=== PATIENT | male | born 1970 | race Caucasian/White ===

== ENCOUNTER 2018-09-11 10:06 | Outpatient (CLI) | payer BC ==
--- NOTE | 2018-09-11 10:44 | RAD ---
F2 views chest: 09/11/2018 COMPARISON: 06/16/2013 HISTORY: Cough and congestion, drainage with shortness of breath FINDINGS: Increased linear interstitial density is noted bilaterally, stable. Mild pulmonary hyperinf lation noted, stable and suggesting air trapping. Stable prominence of the cardiac silhouette. No pne umothorax, pleural fluid, focal consolidation, or alveolar edema. IMPRESSION: Stable prior to the chest. No acute findings.
== END 2018-09-11 10:07 | disposition home or self-care (01) ==
LOC: SCSRAD 10:06
PROVIDERS: ATTEND Family Medicine
DX: R05 Cough (principal)
CPT/HCPCS: 71046

== ENCOUNTER 2018-09-18 08:30 | Outpatient (CLI) | payer BC ==
--- NOTE | 2018-09-18 12:21 | CT ---
SINUS CT WITHOUT CONTRAST: HISTORY: Recurrent sinus infection. COMPARISON: None. FINDINGS: Visualized brain parenchyma and orbits are unremarkable. The visualized aerodigestive tract is grossly unremarkable. Adequate aeration of the frontal sinuses, ethmoid air cells and sphenoid sinuses. There is mild mucos al thickening involving the left maxillary sinus. A small amount of secretions are noted in the depen dent portion. There is adequate aeration of the right maxillary sinus. Coronal images demonstrate patent bilateral ostiomeatal complexes. Nasal septum is intact. With regard to the osseous margins of the sinuses, there are no erosive or destructive changes. IMPRESSION: Mild mucosal disease involving the left maxillary sinus. Transcribed Date/Time: 09/18/2018 12:23 PM
== END 2018-09-18 08:31 | disposition home or self-care (01) ==
LOC: SCSCT 08:30
PROVIDERS: ATTEND Otolaryngology Plastic Surgery within the Head & Neck
DX: J01.91 Acute recurrent sinusitis, unspecified (principal); J32.0 Chronic maxillary sinusitis

== ENCOUNTER 2018-10-06 03:12 | Emergency (ER) | payer BC ==
[2018-10-06] MEDS ORDERED: Dicyclomine 20 MG TAB ONE (03:47)
[2018-10-06] MEDS ORDERED: Ondansetron PF 4 MG/2 ML Vial ONE (03:47)
[2018-10-06 03:58] LABS: #Basophils 0.1 thou/uL (0.0-0.2); #Eosinphils 0.1 thou/uL (0.0-0.7); #Lymphocytes 1.3 thou/uL (1.20-3.40); #Neutrophils 13.7 thou/uL (1.40-6.50); %Basophils 0.5 % (0.0-1.0); %Eosinophils 0.8 % (0.0-10.0); %Lymphocytes 7.8 % (21.0-51.0); %Monocytes 5.9 % (0.0-10.0); Mean Corpuscular HGB CONC 34.6 g/dL (32.0-36.0); Mean Corpuscular Hemoglobin 30.2 pg (27.0-31.0); Mean Corpuscular Volume 87.1 fL (78.0-98.0); Mean Platelet Volume 6.4 fL (7.4-10.4); Platelet Count 213 thou/uL (130-400); RBC Distribution Width 12.6 % (11.5-14.5); Red Blood Cell (RBC) Count 4.63 mill/uL (4.70-6.10); White Blood Cell (WBC) Count 16.1 thou/uL (4.8-10.8)
[2018-10-06 04:17] LABS: ALT (SGPT) 39 U/L (8-55); AST (SGOT) 25 U/L (5-34); Albumin 4.6 g/dL (3.5-5.0); Alkaline Phosphatase 84 U/L (40-150); Anion Gap 16 mmol/L (10-20); BUN (Urea Nitrogen) 20 mg/dL (8.9-20.6); Bilirubin, Total 1.2 mg/dL (0.2-1.2); Calc. Creatinine Clearance 0 mL/min (70-130); Calcium 9.5 mg/dL (7.8-10.44); Carbon Dioxide 20 mmol/L (22-29); Chloride 109 mmol/L (98-107); Estimated GFR-MDRD 55; Globulin 2.5 g/dL (2.4-3.5); Glucose 138 mg/dL (70-105); Lipase 17 U/L (8-78); Magnesium 1.9 mg/dL (1.6-2.6); Protein, Total 7.1 g/dL (6.0-8.3); Sodium 141 mmol/L (136-145)
== END 2018-10-06 05:21 | disposition home or self-care (01) ==
LOC: SCSER 03:12
DX: R11.2 Nausea with vomiting, unspecified (principal); R19.7 Diarrhea, unspecified; G47.30 Sleep apnea, unspecified; J45.909 Unspecified asthma, uncomplicated; I48.91 Unspecified atrial fibrillation; I10 Essential (primary) hypertension; Z79.899 Other long term (current) drug therapy; Z79.51 Long term (current) use of inhaled steroids
CPT/HCPCS: 80053; 83690; 83735; 85025; 96361; 96374; J2405

== ENCOUNTER 2018-10-29 20:30 | Outpatient (CLI) | payer BC | END 2018-10-29 20:31 | disposition home or self-care (01) | LOC: SLEEPLAB 20:30 | PROVIDERS: ATTEND Allergy & Immunology | DX: G47.33 Obstructive sleep apnea (adult) (pediatric) (principal) | CPT/HCPCS: 95811 ==

== ENCOUNTER 2019-04-04 13:26 | Outpatient (CLI) | payer BC ==
[~2019-04-04 13:26] MED LIST: Iopamidol 370 76% 100 ML VIAL ONE
--- NOTE | 2019-04-04 16:13 | CT ---
CT ABDOMEN AND PELVIS WITH AND WITHOUT IV CONTRAST: 04/04/19 HISTORY: Microscopic hematuria. FINDINGS: The lung bases are unremarkable. The liver, pancreas and adrenal glands are normal. The spleen is enl arged measuring 16.5 cm in length. No calcified gallstones are seen. No calculi are noted in the kidneys, ureters, or the urinary bladder. No hydroureteronephrosis is not ed on either side. Postcontrast images demonstrate a 14 mm cyst arising from the inferior pole of the left kidney. No enhancing renal mass is seen on either side. There is normal contrast excretion int o the pelvicalyceal systems, ureters and the urinary bladder. No free air, free fluid, or lymphadenopathy is seen in the abdomen or pelvis. The small bowel loops are not abnormally dilated. A normal appearing appendix is seen. Degenerative changes in the spine. A small sclerotic focus in the right acetabular roof is likely a b one island. IMPRESSION: 1. No CT evidence of urinary tract calculi/obstruction. 2. Left inferior pole renal cyst. 3. Splenomegaly. POS: [facility]
== END 2019-04-04 13:27 | disposition home or self-care (01) ==
LOC: SCSCT 13:26
PROVIDERS: ATTEND Urology
DX: R31.29 Other microscopic hematuria (principal); N28.1 Cyst of kidney, acquired; R16.1 Splenomegaly, not elsewhere classified
CPT/HCPCS: 74178; Q9967

== ENCOUNTER 2019-08-20 07:45 | Outpatient (CLI) | payer BC ==
[2019-08-20 12:05] LABS: Hemoglobin 13.7 g/dL (14.0-18.0); Mean Corpuscular HGB CONC 35.5 g/dL (32.0-36.0); Mean Corpuscular Hemoglobin 31.6 pg (27.0-31.0); Mean Platelet Volume 7.5 fL (7.4-10.4); Platelet Count 180 thou/uL (130-400); RBC Distribution Width 12.2 % (11.5-14.5); Red Blood Cell (RBC) Count 4.34 mill/uL (4.70-6.10); White Blood Cell (WBC) Count 7.4 thou/uL (4.8-10.8)
[2019-08-20 12:10] LABS: INR-International Normal Ratio 1.6; PTT 36.4 SEC (22.9-36.1); Prothrombin Time 18.9 SEC (12.0-14.7)
[2019-08-20 12:30] LABS: Anion Gap 13 mmol/L (10-20); BUN (Urea Nitrogen) 12 mg/dL (8.9-20.6); Calc. Creatinine Clearance 0 mL/min (70-130); Calcium 9.3 mg/dL (7.8-10.44); Carbon Dioxide 26 mmol/L (22-29); Chloride 106 mmol/L (98-107); Estimated GFR-MDRD Greater than 90; Glucose 97 mg/dL (70-105); Potassium 3.9 mmol/L (3.5-5.1); Sodium 141 mmol/L (136-145)
== END 2019-08-20 07:46 | disposition home or self-care (01) ==
LOC: LABBT 07:45
PROVIDERS: ATTEND Specialist
DX: Z01.818 Encounter for other preprocedural examination (principal); I48.91 Unspecified atrial fibrillation
CPT/HCPCS: 80048; 85027; 85610; 85730; 93005; 93010

== ENCOUNTER 2019-08-22 08:44 | Observation (INO) | payer BC ==
[2019-08-22 09:39] LABS: INR-International Normal Ratio 1.6; PTT 35.8 SEC (22.9-36.1); Prothrombin Time 18.8 SEC (12.0-14.7)
[2019-08-22] MEDS ORDERED: Heparin 10,000 UNITS/1 ML VIAL ONE ×2 (09:51→11:24)
[2019-08-22] MEDS ORDERED: Heparin 25,000 units/D5W 0 ML ONE (09:51)
[2019-08-22] MEDS ORDERED: Lidocaine 1% (PF) 30 ML VIAL ONE (09:51)
[2019-08-22] MEDS ORDERED: Isoproterenol 0.2 MG/1 ML AMP ONE (09:53)
[2019-08-22] MEDS ORDERED: SUGAMMADEX SODIUM 200 MG/2 ML VIAL ONE (10:11)
[2019-08-22] MEDS ORDERED: Fentanyl 100 MCG/2 ML VIAL ONE ×2 (10:11→10:51)
[2019-08-22] MEDS ORDERED: PHENYLEPHRINE-NS 100 MCG/ML 10 ML SYRINGE ONE (10:26)
[2019-08-22] MEDS ORDERED: Rocuronium Bromide 10 MG/ML (10ML VIAL) ONE (10:26)
[2019-08-22] MEDS ORDERED: Succinylcholine Chloride 20 MG/ML 10 ml SYRINGE FS ONE (10:26)
[2019-08-22] MEDS ORDERED: Lidocaine 1% PF 5 ML VIAL ONE (10:26)
[2019-08-22] MEDS ORDERED: PROPOFOL 200 MG/20 ML VIAL ONE (10:26)
[2019-08-22] MEDS ORDERED: Rocuronium Bromide 50 MG/5 ML VIAL ONE (11:41)
[2019-08-22] MEDS ORDERED: PROVENTIL INHALER 6.7 G (200 INHALATIONS) INH PRN ×2 (14:53→19:46)
[2019-08-22] MEDS ORDERED: Rivaroxaban 10 MG TAB PO SCH (18:00)
[2019-08-22] MEDS ORDERED: Morphine 2 MG/ML SYRINGE SLOW IVP SCH (18:15)
[2019-08-22] MEDS ORDERED: Sodium Chloride 0.9% 1,000 ML IV SCH (18:30)
[2019-08-22] MEDS ORDERED: Acetaminophen 325 MG TAB PO PRN (18:30)
--- NOTE | 2019-08-22 18:37 | ULT ---
Focused vascular ultrasound of the neck: 08/22/2019 COMPARISON: None HISTORY: Swelling, prior ablation procedure TECHNIQUE: Focused ultrasound of the neck is provided on the right. Provided imaging includes graysca le assessment as well as assessment of the mid and proximal aspect of the right common carotid artery with color flow and Doppler interrogation. FINDINGS: The provided imaging demonstrates patency with normal arterial waveforms within the interro gated portion of the right common carotid artery. No drainable fluid collection is seen. No patent pseudoaneurysm is noted. If further clinical concern warrants additional imaging, CT angiogram of the neck suggested. IMPRESSION: Grossly unremarkable focused ultrasound of the neck on the right. Please see above discus juliette regarding potential follow-up imaging.
[2019-08-22] MEDS: Sucralfate 1 GM TAB PO SCH ×2 (18:52→20:27)
[2019-08-22] MEDS: Dronedarone HCl 400 MG TAB PO SCH (20:26)
[2019-08-22] MEDS: CeleCOXIB 100 MG CAP PO SCH (20:36)
[2019-08-22] MEDS: cycloSPORINE 0.05% Ophthalmic Droperette EA EYE SCH (20:37)
[2019-08-22] MEDS ORDERED: CeleCOXIB 100 MG CAP PO SCH (21:00)
[2019-08-22] MEDS ORDERED: Montelukast Sodium 10 mg Tablet PO SCH ×2 (21:00)
--- NOTE | 2019-08-23 00:29 | HP ---
CHIEF COMPLAINT: Atrial fibrillation. HISTORY OF PRESENT ILLNESS: This patient is a 49-year-old male with a history of atrial fibrillation that recurred following a PVI in 2016. The patient has been symptomatic with some palpitations, dyspnea and fatigue and had evidence of some possible volume overload with weight gain and peripheral edema. Ultimately, followed with EP and returned today for atrial fibrillation ablation. Subsequent to returning to the floor, the patient was sitting upright and developed some pain and swelling in his right neck area where he had a puncture site for the procedure. He has had some pressure applied to that area and it is feeling somewhat better. He is also reporting a burning sensation in both eyes. He says he had a stye about a week ago in the left eye, took some medication for that, but now his eyes are scratchy and burning rather. Otherwise, he is doing okay. REVIEW OF SYSTEMS: Notable for some lower extremity peripheral edema. Other than that all systems reviewed were negative. PAST MEDICAL HISTORY: Notable for the above-mentioned atrial fibrillation. He has hypertension and his blood pressure at home and it has been running 150/90 range. He has a history of gastroesophageal reflux and history of retinal detachment. PAST SURGICAL HISTORY: PVI for atrial fibrillation 2016. FAMILY HISTORY: Noncontributory. SOCIAL HISTORY: Nonsmoker, nondrinker, nondrug user. He is . He is full code and his would be his surrogate decision maker should that become necessary. PHYSICAL EXAMINATION: VITAL SIGNS: Temperature 98.1, pulse 97, BP 145/77, O2 saturation 92% on room air. GENERAL APPEARANCE: Age-appropriate male in no distress. He is awake and alert. He is morbidly obese. GENERAL APPEARANCE: Age-appropriate. HEENT: MANDY. He does have injected vasculature of the conjunctiva bilaterally. There are no OP lesions. NECK: There is no significant evidence of mass or bruising presently. Ultrasound being obtained revealing no significant findings. HEART: Regular rate and rhythm without murmurs, gallops, or rubs. LUNGS: Clear to auscultation bilaterally. No wheezes or rales. ABDOMEN: Obese, soft, nontender, and nondistended. Positive bowel sounds. No masses. No organomegaly. EXTREMITIES: No cyanosis, clubbing, or edema. There is 1+ pitting edema pretibially bilaterally. Peripheral pulses are present, but slightly diminished likely due to the edema. PSYCHIATRIC: Normal affect and behavior. NEUROLOGIC: He is cognitively intact. Cranial nerves appear to be functioning normally. He has spontaneous movement of extremities. LABORATORY DATA: INR is 1.6, PTT 35.8. IMPRESSION AND PLAN: 1. Atrial fibrillation status post ablation per EP. 2. Right neck hematoma, appears to be improved with compression. Ultrasound does not appear to show anything abnormal of the vasculature. Dr. Logan has been notified. We will defer to them regarding decisions about anticoagulation this evening. 3. Hypertension. Resume his home medications. 4. Conjunctivitis. We will order some Restasis. 5. History of reflux. Continue with proton pump inhibitor and Carafate, which has already been ordered. Job ID: [id number] [facility]
[2019-08-23 05:08] LABS: #Lymphocytes 1.5 thou/uL (1.20-3.40); #Monocytes 0.6 thou/uL (0.11-0.59); #Neutrophils 6.4 thou/uL (1.40-6.50); %Eosinophils 0.4 % (0.0-10.0); %Lymphocytes 17.3 % (21.0-51.0); %Monocytes 7.3 % (0.0-10.0); Hemoglobin 11.5 g/dL (14.0-18.0); Mean Corpuscular HGB CONC 35.2 g/dL (32.0-36.0); Mean Corpuscular Hemoglobin 31.7 pg (27.0-31.0); Mean Platelet Volume 7.4 fL (7.4-10.4); Platelet Count 159 thou/uL (130-400); RBC Distribution Width 12.2 % (11.5-14.5); Red Blood Cell (RBC) Count 3.61 mill/uL (4.70-6.10); White Blood Cell (WBC) Count 8.5 thou/uL (4.8-10.8)
[2019-08-23] MEDS: Sucralfate 1 GM TAB PO SCH ×2 (07:56→11:04)
[2019-08-23] MEDS: Dronedarone HCl 400 MG TAB PO SCH (07:58)
[2019-08-23] MEDS: CeleCOXIB 100 MG CAP PO SCH (07:58)
[2019-08-23] MEDS ORDERED: Potassium Chloride 10 MEQ TAB PO SCH ×2 (08:00→09:00)
[2019-08-23] MEDS: cycloSPORINE 0.05% Ophthalmic Droperette EA EYE SCH (08:00)
[2019-08-23] MEDS ORDERED: Furosemide 20 MG TAB PO SCH ×2 (09:00)
[2019-08-23] MEDS ORDERED: Folic Acid 1 MG TAB PO SCH ×2 (09:00)
[2019-08-23] MEDS ORDERED: Fluticasone Propionate Nasal Spray 16 gm Bottle NASAL SCH ×2 (09:00)
[2019-08-23] MEDS ORDERED: Losartan 25 MG TAB PO SCH ×2 (09:00)
--- NOTE | 2019-08-23 10:12 | PDOC.EP ---
- Subjective Date: 08/23/19 Time: 10:10 Interval History: follow up for atrial fibrillation s/p LA ablation. c/o right neck pain from post op hematoma. otherwise no complaints and feels well. - Review of Systems Constitutional: denies: chills, fever, malaise, sweats, weakness, other Respiratory: denies: cough, dry, hemoptysis, pleuritic pain, shortness of breath , SOB with excertion, sputum, wheezing, other Cardiology: denies: chest pain, edema, heart racing, light headedness, paroxysmal noc. dyspnea, palpitations Gastrointestinal: denies: abdominal pain, constipation, nausea, vomitting Musculoskeletal: reports: other (neck pain). denies: unstable gait, falls, leg pain - Objective Allergies/Adverse Reactions: Allergies Allergy/AdvReac Type Severity Reaction Status Date / Time latex Allergy Rash Verified 08/20/19 10:43 Penicillins Allergy Verified 08/20/19 10:43 Sulfa (Sulfonamide Allergy Rash Verified 08/20/19 10:43 Antibiotics) Current Medications Acetaminophen (Tylenol) 650 mg PO Q4H PRN PRN Reason: Headache/Fever/Mild Pain (1-3) Albuterol Sulfate (Proventil Hfa) 2 puff INH Q4H PRN PRN Reason: ASTHMA Celecoxib (Celebrex) 200 mg PO BID [facility] Last Admin: 08/23/19 07:58 Dose: 200 mg Cholecalciferol (Vitamin D3) 2,000 units PO DAILY [facility] Last Admin: 08/23/19 07:57 Dose: 2,000 units Cyclosporine (Restasis) 0 ml EA EYE BID [facility] Last Admin: 08/23/19 08:00 Dose: 1 ml Dronedarone (Multaq) 400 mg PO BID [facility] Last Admin: 08/23/19 07:58 Dose: 400 mg Fluticasone Propionate (Flonase Nasal Danube) 0 gm NASAL DAILY [facility] Last Admin: 08/23/19 07:58 Dose: 1 applic Folic Acid (Folvite) 1 mg PO DAILY [facility] Last Admin: 08/23/19 07:57 Dose: 1 mg Furosemide (Lasix) 20 mg PO DAILY [facility] Last Admin: 08/23/19 07:57 Dose: 20 mg Sodium Chloride (Normal Saline 0.9%) 1,000 mls @ 50 mls/hr IV .Q20H [facility] Last Admin: 03/13/20 20:24 Dose: 1,000 mls Losartan Potassium (Cozaar) 50 mg PO DAILY [facility] Last Admin: 08/23/19 07:58 Dose: 50 mg Metoprolol Succinate (Toprol Xl) 50 mg PO DAILY [facility] Last Admin: 08/23/19 07:58 Dose: 50 mg Montelukast Sodium (Singulair) 10 mg PO HS [facility] Last Admin: 08/22/19 20:37 Dose: 10 mg Pantoprazole Sodium (Protonix) 40 mg PO DAILY [facility] Stop: 09/21/19 09:01 Last Admin: 08/23/19 07:58 Dose: 40 mg Potassium Chloride (Klor-Con 10) 10 meq PO QAM-WM [facility] Last Admin: 08/23/19 07:57 Dose: 10 meq Rivaroxaban (Xarelto) 20 mg PO 1800 [facility] Last Admin: 08/22/19 20:36 Dose: 20 mg Sodium Chloride (Flush - Normal Saline) 10 ml IVF PRN PRN PRN Reason: Saline Flush Sucralfate (Carafate) 1 gm PO ACHS [facility] Stop: 09/05/19 17:01 Last Admin: 08/23/19 07:56 Dose: 1 gm Vital Signs & Weight: Vital Signs Temp Pulse Resp BP Pulse Ox 08/23/19 07:48 98.3 F 79 18 145/78 H 96 08/23/19 04:35 98.4 F 81 14 138/82 100 08/22/19 22:30 90 19 146/86 H 98 Weight 13.228 oz I/O: I/O 08/22/19 08/23/19 08/24/19 06:59 06:59 06:59 Intake Total 950 Output Total 350 Balance 600 - Quality Measures Condition: Atrial Fibrillation/Flutter (hx or current) CV meds: Xarelto: Yes - Physical Exam General: alert & oriented x3, appears well, no apparent distress, speech clear, affect appropriate HEENT: mucus membranes moist, normocephaly Neck: supple neck, midline trachea, no JVD/HJR, masses (right sided hematoma ~ 3cm. does not exceed outlined area from the night prior.) Cardiology: regular rate and rhythm, PMI nondisplaced Lungs: clear to auscultation, normal breath sounds, no wheeze, rales, rhonchi Neurology: cranial nerve 2-12 intact, sensory function intact, no lateralizing findings Extremities: dry, strong pulses, warm Skin: groin sites stable - Labs Result Diagrams: 08/23/19 04:52 - EKG Interpretation EKG Method: Telemetry EKG shows: Sinus rhythm - Assessment/Plan Assessment/Plan: 1. Persistent AFib -41 min ablation 2. Chronic OAC with eliquis Groin access sites stable without hematoma. Right neck site has small hematoma, US ruled out pseudo and bleeding has not expanded since prior to ultrasound, even with Xarelto given last night. Continue home meds and add post ablation meds of protonix and carafate. patient has lasix and KCl at home but was provided with written rx if additional is needed. Instructed to take Lasix 20mg and KCl 10mEq daily x 3 days then PRN fluid retention symptoms. rhythm stable post ablation. No need for Multaq at this time but if early recurrence is seen then we will have patient resume Multaq & stop diltiazem. med per med rec. OK for DC by EP
--- NOTE | 2019-08-23 10:37 | OP ---
DATE OF PROCEDURE: 08/22/2019 PROCEDURE PERFORMED: Ablation for atrial fibrillation. PREOPERATIVE DIAGNOSES: Persistent atrial fibrillation and atypical atrial flutter. DESCRIPTION OF PROCEDURE: The patient came to the EP lab in postabsorptive state. Informed consent was obtained. A time-out was called. The patient was sedated by member of the anesthesia staff. Once the patient was adequately sedated, the right and left femoral regions were prepped and draped in usual sterile fashion. Using a modified Seldinger technique and with ultrasound-guided access, access was obtained x2 in the right femoral vein, x1 in the left femoral vein, and x1 in the right internal jugular vein. A 20 pole duo-Deca catheter was advanced from the right internal jugular vein with the distal 10 poles placed into the coronary sinus for left atrial pacing and recording. The proximal 10 poles placed along the nick terminalis area. The intracardiac echo catheter was advanced from the left femoral vein and was placed into the right atrium for intraprocedural guidance and monitoring. Heparin bolus was given to achieve an ACT greater than 350 seconds. Transseptal puncture x2 was obtained under ultrasound guidance. A 20 mm 10-pole circular mapping catheter was placed into the left atrium as was a Carto STSF F catheter. A 3D electroanatomical map was made of the atypical atrial flutter. The flutter circuit appeared to be coming from the anterior left atrium along the base of the appendage. This was ablated successfully and initially with prolongation of the flutter cycle length and then ultimately termination. Following this, radiofrequency was applied around the pulmonary veins to re-isolate the pulmonary veins. It appeared that the left superior pulmonary vein, the left inferior pulmonary vein, the right superior pulmonary vein, and the right inferior pulmonary vein all had regained conduction in distant areas of the posterior wall. A total of 41 minutes of radiofrequency was delivered resulting in re-isolation the pulmonary veins as well as ablation of the posterior wall. The posterior wall could not be isolated completely due to esophageal heating. This was monitored with a temperature probe. Following this, the catheter was removed from the left atrium and the circular mapping catheter was placed into the superior vena cava, and the superior vena cava was isolated with radiofrequency. The ablation catheter was also placed along the His bundle and an HV interval was 50 milliseconds. Pacing in the left atrium as well as the left ventricle was also performed. The patient tolerated the procedure well and was discharged from the EP lab in a stable condition. POSTOPERATIVE DIAGNOSES: Atypical atrial flutter and persistent atrial fibrillation. PROCEDURES PERFORMED: Radiofrequency ablation for atypical atrial flutter and for atrial fibrillation, 3D electroanatomical mapping, transseptal puncture, intracardiac echo, isoproterenol, drug delivery. CONCLUSIONS: 1. Successful ablation of atypical atrial flutter. 2. Successful re-isolation of pulmonary veins. 3. No further arrhythmias on infusion of isoproterenol. 4. Successful isolation of the superior vena cava. RECOMMENDATIONS: The patient will be at bed rest and the patient will follow up with Electrophysiology in 6 weeks. Job ID: [id number]
[2019-08-23 11:54] VITALS: BP 138/72; TEMP 98.6
--- NOTE | 2019-08-24 22:35 | DIS ---
DATE OF ADMISSION: 08/22/2019 DATE OF DISCHARGE: 08/23/2019 HISTORY OF PRESENT ILLNESS: Mr. Patel is a 49-year-old male with a medical history of atrial fibrillation that recurred following the PVI in 2016. He has been symptomatic with palpitations, dyspnea, and fatigue, so was seen by outpatient EP and was scheduled for atrial fibrillation ablation. Subsequent returning over to the floor, the patient was found to have some pain and swelling in the right neck area around the puncture site during the procedure. He was thought to have hematoma and was monitored overnight. Ultrasound showed no hematoma and the patient's swelling resolved on the day of discharge, was discharged home and hemodynamically stable with sinus rhythm and followup appointment with Cardiology. He was also on Eliquis overnight and as stated none of his procedure incision sites showed hematoma or worsening hematoma, even though the right groin area showed stable small hematoma that was present immediately after surgery. PHYSICAL EXAMINATION: VITAL SIGNS: Unremarkable. GENERAL: He was alert and oriented x3, no apparent distress. HEENT: Mucous membranes were moist. Normocephalic, atraumatic. NECK: No JVD. No swelling. HEART: Regular rate and rhythm. LUNGS: Clear to auscultation bilaterally. Normal breath sounds. No wheezing, rales, or rhonchi. NEUROLOGIC: Cranial nerves intact. EXTREMITIES: Strong bilateral pedal pulses. SKIN: Right groin site shows a small stable hematoma. Left groin site shows no hematoma. ASSESSMENT AND PLAN: Mr. Patel is a 49-year-old male who presented for elective ablation due to symptomatic atrial fibrillation. 1. Atrial fibrillation, status post ablation. The patient had an ablation, tolerated the procedure well. He remained in sinus rhythm after the procedure. Cardiology reconciled the patient's medication prior to discharge. He was suspected to have a neck hematoma after the procedure, however, was ruled out by ultrasound, most likely soft-tissue inflammation due to the incision. 2. Scheduled for an appointment with Cardiology. 3. He was discharged on Eliquis as per Cardiology. Job ID: [id number]
== END 2019-08-23 12:13 | disposition home or self-care (01) ==
LOC: CCL 08:44 → 2SW 13:40
PROVIDERS: ADMIT Specialist; ATTEND Specialist
PROC: 02583ZZ Destruction of Conduction Mechanism, Percutaneous Approach (ICD-10-PCS; principal; 2019-08-22)
PROC: 4A023FZ Measurement of Cardiac Rhythm, Percutaneous Approach (ICD-10-PCS; 2019-08-22)
PROC: 4A0234Z Measurement of Cardiac Electrical Activity, Percutaneous Approach (ICD-10-PCS; 2019-08-22)
PROC: 02K83ZZ Map Conduction Mechanism, Percutaneous Approach (ICD-10-PCS; 2019-08-22)
DX: I48.19 Other persistent atrial fibrillation (principal); I48.4 Atypical atrial flutter; G47.33 Obstructive sleep apnea (adult) (pediatric); I10 Essential (primary) hypertension; K21.9 Gastro-esophageal reflux disease without esophagitis; G89.29 Other chronic pain; M54.9 Dorsalgia, unspecified; H10.9 Unspecified conjunctivitis; E66.01 Morbid (severe) obesity due to excess calories; Z68.42 Body mass index [BMI] 45.0-49.9, adult; Z79.01 Long term (current) use of anticoagulants; Z79.899 Other long term (current) drug therapy; Z88.0 Allergy status to penicillin; Z88.2 Allergy status to sulfonamides; Z91.040 Latex allergy status; Z99.89 Dependence on other enabling machines and devices; Z98.890 Other specified postprocedural states
CPT/HCPCS: 36415; 76536; 76942; 85025; 85347; 85610; 85730; 93005; 93010; 93613; 93622; 93623; 93656; 93657; 93662; 96374; C1731; C1759; C1769; G0378; J1644; J2001; J2270; J2704; J3010

== ENCOUNTER 2020-10-20 19:16 | Emergency (ER) | payer BC ==
[2020-10-20 20:31] LABS: #Eosinphils 0.1 thou/uL (0.0-0.7); #Lymphocytes 1.7 thou/uL (1.20-3.40); #Monocytes 0.6 thou/uL (0.11-0.59); %Basophils 0.3 % (0.0-1.0); %Eosinophils 1.9 % (0.0-10.0); %Lymphocytes 26.8 % (21.0-51.0); %Monocytes 8.8 % (0.0-10.0); %Neutrophils 62.3 % (42.0-75.0); Hemoglobin 12.6 g/dL (14.0-18.0); Mean Corpuscular HGB CONC 35.7 g/dL (32.0-36.0); Mean Corpuscular Hemoglobin 33.3 pg (27.0-31.0); Mean Corpuscular Volume 93.3 fL (78.0-98.0); Mean Platelet Volume 7.2 fL (7.4-10.4); Platelet Count 184 thou/uL (130-400); RBC Distribution Width 12.3 % (11.5-14.5); Red Blood Cell (RBC) Count 3.77 mill/uL (4.70-6.10); White Blood Cell (WBC) Count 6.4 thou/uL (4.8-10.8)
[2020-10-20 20:47] LABS: Anion Gap 15 mmol/L (10-20); BUN (Urea Nitrogen) 15 mg/dL (8.9-20.6); Calc. Creatinine Clearance 0 mL/min (70-130); Calcium 9.3 mg/dL (7.8-10.44); Carbon Dioxide 24 mmol/L (22-29); Chloride 105 mmol/L (98-107); Glucose 85 mg/dL (70-105); Potassium 4.1 mmol/L (3.5-5.1); Sodium 140 mmol/L (136-145)
== END 2020-10-20 22:18 | disposition home or self-care (01) ==
LOC: ERS 19:16
DX: R61 Generalized hyperhidrosis (principal); R42 Dizziness and giddiness; G47.30 Sleep apnea, unspecified; J45.909 Unspecified asthma, uncomplicated; I48.91 Unspecified atrial fibrillation; I10 Essential (primary) hypertension; Z79.899 Other long term (current) drug therapy; Z79.82 Long term (current) use of aspirin
CPT/HCPCS: 36415; 71046; 80048; 84484; 85025

== ENCOUNTER 2021-10-29 17:10 | Inpatient (IN) | payer BC ==
[2021-10-29] MEDS ORDERED: Ondansetron ODT 8 MG TAB ONE (18:38)
[2021-10-29] MEDS ORDERED: Acyclovir Sodium 1,000 MG in Sodium Chloride 0.9% 250 ML 250 ML IVPB SCH (19:15)
[2021-10-29] MEDS ORDERED: Morphine 4 MG/ML VIAL ONE (20:06)
[2021-10-29] MEDS ORDERED: Morphine 4 MG/ML VIAL SLOW IVP PRN (21:06)
[2021-10-29] MEDS ORDERED: methylPREDNISolone Sod Succ/PF 125 MG/2 ML VIAL ONE (21:11)
[2021-10-29] MEDS ORDERED: Acetaminophen 325 MG TAB PO PRN (21:15)
[2021-10-29] MEDS ORDERED: Ondansetron ODT 4 MG TAB SL PRN (21:15)
[2021-10-29] MEDS ORDERED: Ondansetron PF 4 MG/2 ML Vial IVP PRN (21:15)
[2021-10-29] MEDS ORDERED: Albuterol 200 PUFF (6.7GM INHALER) INH PRN (22:04)
[2021-10-29] MEDS: Sodium Chloride 0.9% 1,000 ML IV SCH (23:30)
[2021-10-29 23:33] VITALS: BMI 49.1
[2021-10-29] MEDS ORDERED: methylPREDNISolone Sod Succ 40 MG VIAL IVP SCH (23:59)
[2021-10-30] MEDS: HYDROcodone/Acetaminophen 5/325 mg Tablet PO PRN ×5 (01:36→21:28)
[2021-10-30] MEDS ORDERED: Acyclovir Sodium 1,000 MG in Sodium Chloride 0.9% 250 ML 250 ML IVPB SCH (04:00)
[2021-10-30] MEDS: methylPREDNISolone Sod Succ 40 MG VIAL IVP SCH ×4 (04:23→20:14)
[2021-10-30] MEDS: Sodium Chloride 0.9% 1,000 ML IV SCH (05:43)
[2021-10-30 06:46] LABS: #Lymphocytes 0.9 thou/uL (1.20-3.40); #Monocytes 0.1 thou/uL (0.11-0.59); #Neutrophils 4.6 thou/uL (1.40-6.50); %Eosinophils 0.4 % (0.0-10.0); %Lymphocytes 16.1 % (21.0-51.0); %Monocytes 1.6 % (0.0-10.0); Hemoglobin 12.8 g/dL (14.0-18.0); Mean Corpuscular HGB CONC 35.8 g/dL (32.0-36.0); Mean Corpuscular Hemoglobin 33.1 pg (27.0-31.0); Mean Corpuscular Volume 92.3 fL (78.0-98.0); Mean Platelet Volume 6.7 fL (7.4-10.4); Platelet Count 189 thou/uL (130-400); RBC Distribution Width 12.4 % (11.5-14.5); Red Blood Cell (RBC) Count 3.88 mill/uL (4.70-6.10); White Blood Cell (WBC) Count 5.6 thou/uL (4.8-10.8)
[2021-10-30 07:12] LABS: ALT (SGPT) 27 U/L (8-55); AST (SGOT) 17 U/L (5-34); Albumin 4.3 g/dL (3.5-5.0); Alkaline Phosphatase 65 U/L (40-110); Anion Gap 13 mmol/L (10-20); BUN (Urea Nitrogen) 14 mg/dL (8.9-20.6); Bilirubin, Total 1.7 mg/dL (0.2-1.2); Calc. Creatinine Clearance 215 mL/min (70-130); Calcium 8.9 mg/dL (7.8-10.44); Carbon Dioxide 27 mmol/L (22-29); Chloride 101 mmol/L (98-107); Globulin 2.7 g/dL (2.4-3.5); Glucose 151 mg/dL (70-105); Potassium 3.7 mmol/L (3.5-5.1); Sodium 137 mmol/L (136-145)
[2021-10-30] MEDS: CeleCOXIB 100 MG CAP PO SCH ×2 (08:55→20:13)
[2021-10-30] MEDS: Rivaroxaban 10 MG TAB PO SCH (08:56)
[2021-10-30] MEDS: Losartan 25 MG TAB PO SCH (08:57)
[2021-10-30] MEDS: Furosemide 20 MG TAB PO SCH (08:57)
[2021-10-30] MEDS: Ondansetron PF 4 MG/2 ML Vial IVP PRN ×3 (12:08→23:21)
[2021-10-30] MEDS: Montelukast Sodium 10 mg Tablet PO SCH (20:14)
[2021-10-30] MEDS: Acyclovir Sodium 750 MG in Sodium Chloride 0.9% 250 ML 250 ML IVPB SCH (20:42)
[2021-10-31] MEDS: HYDROcodone/Acetaminophen 5/325 mg Tablet PO PRN ×2 (01:20→05:46)
[2021-10-31] MEDS: methylPREDNISolone Sod Succ 40 MG VIAL IVP SCH ×4 (04:05→20:21)
[2021-10-31] MEDS: Ondansetron PF 4 MG/2 ML Vial IVP PRN ×3 (05:46→20:22)
[2021-10-31] MEDS: Acyclovir Sodium 750 MG in Sodium Chloride 0.9% 250 ML 250 ML IVPB SCH ×3 (05:56→20:55)
[2021-10-31] MEDS: CeleCOXIB 100 MG CAP PO SCH ×2 (09:11→20:22)
[2021-10-31] MEDS: Furosemide 20 MG TAB PO SCH (09:12)
[2021-10-31] MEDS: Rivaroxaban 10 MG TAB PO SCH (09:12)
[2021-10-31] MEDS: Losartan 25 MG TAB PO SCH (09:12)
[2021-10-31] MEDS: HYDROcodone/Acetaminophen 10/325 mg Tablet PO PRN ×3 (09:16→20:21)
[2021-10-31] MEDS: Artificial Tear Sol 15 ML BOT L EYE SCH ×2 (17:36→20:57)
[2021-10-31] MEDS: Montelukast Sodium 10 mg Tablet PO SCH (20:22)
[2021-11-01] MEDS: HYDROcodone/Acetaminophen 10/325 mg Tablet PO PRN ×3 (00:51→09:00)
[2021-11-01] MEDS: Ondansetron PF 4 MG/2 ML Vial IVP PRN ×2 (03:27→09:00)
[2021-11-01] MEDS: methylPREDNISolone Sod Succ 40 MG VIAL IVP SCH ×2 (03:27→09:00)
[2021-11-01] MEDS: Acyclovir Sodium 750 MG in Sodium Chloride 0.9% 250 ML 250 ML IVPB SCH (05:01)
[2021-11-01 06:20] LABS: #Eosinphils 0.1 thou/uL (0.0-0.7); #Lymphocytes 1.3 thou/uL (1.20-3.40); #Monocytes 0.3 thou/uL (0.11-0.59); #Neutrophils 7.9 thou/uL (1.40-6.50); %Basophils 0.4 % (0.0-1.0); %Eosinophils 0.6 % (0.0-10.0); %Lymphocytes 13.3 % (21.0-51.0); %Monocytes 3.2 % (0.0-10.0); %Neutrophils 82.6 % (42.0-75.0); Hemoglobin 12.5 g/dL (14.0-18.0); Mean Corpuscular HGB CONC 34.9 g/dL (32.0-36.0); Mean Corpuscular Hemoglobin 32.6 pg (27.0-31.0); Mean Corpuscular Volume 93.3 fL (78.0-98.0); Platelet Count 203 thou/uL (130-400); RBC Distribution Width 12.9 % (11.5-14.5); Red Blood Cell (RBC) Count 3.83 mill/uL (4.70-6.10); White Blood Cell (WBC) Count 9.5 thou/uL (4.8-10.8)
[2021-11-01 06:29] LABS: ALT (SGPT) 23 U/L (8-55); AST (SGOT) 18 U/L (5-34); Albumin 3.9 g/dL (3.5-5.0); Alkaline Phosphatase 57 U/L (40-110); Anion Gap 11 mmol/L (10-20); BUN (Urea Nitrogen) 26 mg/dL (8.9-20.6); Bilirubin, Total 0.8 mg/dL (0.2-1.2); Calc. Creatinine Clearance 210 mL/min (70-130); Calcium 8.8 mg/dL (7.8-10.44); Carbon Dioxide 29 mmol/L (22-29); Chloride 100 mmol/L (98-107); Globulin 2.7 g/dL (2.4-3.5); Glucose 149 mg/dL (70-105); Protein, Total 6.6 g/dL (6.0-8.3); Sodium 136 mmol/L (136-145)
[2021-11-01] MEDS: Artificial Tear Sol 15 ML BOT L EYE SCH (08:59)
[2021-11-01] MEDS: CeleCOXIB 100 MG CAP PO SCH (08:59)
[2021-11-01] MEDS ORDERED: Folic Acid 1 MG TAB PO SCH (09:00)
[2021-11-01] MEDS: Losartan 25 MG TAB PO SCH (09:00)
[2021-11-01] MEDS: Rivaroxaban 10 MG TAB PO SCH (09:00)
[2021-11-01 10:41] VITALS: BP 134/81; TEMP 97.8
== END 2021-11-01 12:58 | disposition home or self-care (01) | DRG 125 ==
LOC: ERS 17:10 → T4-A 20:41
PROVIDERS: ADMIT Internal Medicine; ATTEND Internal Medicine
DX: B02.30 Zoster ocular disease, unspecified (principal); Z68.42 Body mass index [BMI] 45.0-49.9, adult; E66.01 Morbid (severe) obesity due to excess calories; J45.909 Unspecified asthma, uncomplicated; G47.33 Obstructive sleep apnea (adult) (pediatric); I48.0 Paroxysmal atrial fibrillation; R11.2 Nausea with vomiting, unspecified; D53.9 Nutritional anemia, unspecified; N18.2 Chronic kidney disease, stage 2 (mild); K21.9 Gastro-esophageal reflux disease without esophagitis; F17.210 Nicotine dependence, cigarettes, uncomplicated; I12.9 Hypertensive chronic kidney disease with stage 1 through stage 4 chronic kidney disease, or unspecified chronic kidney disease; Z99.81 Dependence on supplemental oxygen; Z79.899 Other long term (current) drug therapy; Z79.01 Long term (current) use of anticoagulants; Z88.0 Allergy status to penicillin; Z88.2 Allergy status to sulfonamides; Z91.040 Latex allergy status; Z98.52 Vasectomy status; Z98.890 Other specified postprocedural states; Z72.89 Other problems related to lifestyle; Z83.3 Family history of diabetes mellitus; Z82.49 Family history of ischemic heart disease and other diseases of the circulatory system
CPT/HCPCS: 36415; 80053; 85025; J0133; J2270; J2405; J2920; J2930; J7050; Q0162

== ENCOUNTER 2021-11-13 12:53 | Inpatient (IN) | payer BC ==
[2021-11-13] MEDS ORDERED: Ondansetron PF 4 MG/2 ML Vial ONE ×2 (13:31→15:48)
[2021-11-13] MEDS ORDERED: Morphine 4 MG/ML VIAL ONE (13:31)
[2021-11-13] MEDS ORDERED: Metoprolol Tartrate 5 MG/5 ML VIAL ONE ×2 (13:49→15:48)
[2021-11-13] MEDS ORDERED: Fluorescein Opthalmic Strip ONE (13:50)
[2021-11-13] MEDS ORDERED: Proparacaine 0.5% Opth 15 ML BOT ONE (13:52)
[2021-11-13 14:12] LABS: #Lymphocytes 0.4 thou/uL (1.20-3.40); #Monocytes 0.4 thou/uL (0.11-0.59); #Neutrophils 6.6 thou/uL (1.40-6.50); %Eosinophils 0.4 % (0.0-10.0); %Lymphocytes 5.7 % (21.0-51.0); %Monocytes 5.5 % (0.0-10.0); %Neutrophils 88.4 % (42.0-75.0); Hemoglobin 13.9 g/dL (14.0-18.0); Mean Corpuscular HGB CONC 35.9 g/dL (32.0-36.0); Mean Corpuscular Hemoglobin 32.9 pg (27.0-31.0); Mean Corpuscular Volume 91.4 fL (78.0-98.0); Mean Platelet Volume 6.3 fL (7.4-10.4); Platelet Count 158 thou/uL (130-400); RBC Distribution Width 12.3 % (11.5-14.5); Red Blood Cell (RBC) Count 4.22 mill/uL (4.70-6.10); White Blood Cell (WBC) Count 7.4 thou/uL (4.8-10.8)
[2021-11-13 14:30] LABS: ALT (SGPT) 46 U/L (8-55); AST (SGOT) 26 U/L (5-34); Albumin 4.2 g/dL (3.5-5.0); Alkaline Phosphatase 60 U/L (40-110); Anion Gap 12 mmol/L (10-20); BUN (Urea Nitrogen) 19 mg/dL (8.9-20.6); Bilirubin, Total 2.4 mg/dL (0.2-1.2); CK (CPK) 87 U/L (30-200); Calc. Creatinine Clearance 0 mL/min (70-130); Calcium 8.9 mg/dL (7.8-10.44); Carbon Dioxide 27 mmol/L (22-29); Chloride 102 mmol/L (98-107); Globulin 2.1 g/dL (2.4-3.5); Glucose 141 mg/dL (70-105); Magnesium 1.7 mg/dL (1.6-2.6); Potassium 3.9 mmol/L (3.5-5.1); Protein, Total 6.3 g/dL (6.0-8.3); Sodium 137 mmol/L (136-145)
[2021-11-13] MEDS ORDERED: Gabapentin 300 MG CAP PO SCH (16:45)
[2021-11-13] MEDS ORDERED: Acyclovir Sodium 1,000 MG in Sodium Chloride 0.9% 250 ML 250 ML IVPB SCH (17:00)
[2021-11-13] MEDS ORDERED: Senokot S 8.6-50 MG TAB PO PRN (17:09)
[2021-11-13] MEDS ORDERED: Ondansetron PF 4 MG/2 ML Vial IVP PRN (17:09)
[2021-11-13] MEDS ORDERED: Ondansetron ODT 4 MG TAB PO PRN ×2 (17:09→21:22)
[2021-11-13 17:21] LABS: Troponin I Less than 0.010 ng/mL (< 0.028)
[2021-11-13] MEDS ORDERED: Albuterol Sulfate 2.5 mg/3 ml Neb NEB PRN (17:45)
[2021-11-13] MEDS ORDERED: Diltiazem 125 MG in Sodium Chloride 0.9% 100 ML IVPB SCH (17:45)
[2021-11-13] MEDS: Morphine 2 MG/ML VIAL SLOW IVP PRN ×2 (18:23→22:38)
[2021-11-13] MEDS: Sodium Chloride 0.9% 1,000 ML IV SCH (18:26)
[2021-11-13 18:36] VITALS: BMI 49.6
[2021-11-13 20:16] LABS: Troponin I Less than 0.010 ng/mL (< 0.028)
[2021-11-13 20:45] LABS: SARS-CoV-2 NAA Rapid Test Not Detected (NotDetected)
[2021-11-13] MEDS ORDERED: Pantoprazole 40 MG VIAL IVP SCH (21:00)
[2021-11-13] MEDS ORDERED: Acetaminophen 325 MG TAB PO PRN (21:16)
[2021-11-13] MEDS ORDERED: Fluticasone Propionate Nasal Spray 16 gm Bottle NASAL PRN (21:28)
[2021-11-13] MEDS ORDERED: Albuterol 200 PUFF (6.7GM INHALER) INH PRN (21:29)
[2021-11-13] MEDS: Rivaroxaban 10 MG TAB PO SCH (22:01)
[2021-11-13] MEDS: Gabapentin 300 MG CAP PO SCH (22:01)
[2021-11-13 23:53] LABS: Bacteria/HPF None Seen HPF (None Seen); Bilirubin Negative (Negative); Blood, Urine Negative (Negative); Clarity Clear (Clear); Glucose, Urine (Dipstick) Normal (Negative); Ketone, Urine Trace mg/dL (Negative); Leukocyte Negative Leu/uL (Negative); Nitrite Negative (Negative); Protein, Urine (Dipstick) 20 mg/dL (Neg-Trace); Specific Gravity, Urine 1.033 (1.002-1.036); Squamous Epithelial None Seen HPF (0-3); Urobilinogen 6 mg/dL (Less than 2); WBC/HPF 0-3 HPF (0-3)
[2021-11-14] MEDS: SODIUM CHLORIDE 0.9% IVPB SCH ×2 (00:34→08:34)
[2021-11-14] MEDS: ACYCLOVIR SODIUM IVPB SCH ×2 (00:34→08:34)
[2021-11-14] MEDS ORDERED: Acyclovir Sodium 1,000 MG in Sodium Chloride 0.9% 100 ML IVPB SCH (01:00)
[2021-11-14] MEDS: Sodium Chloride 0.9% 1,000 ML IV SCH ×2 (04:03→14:18)
[2021-11-14] MEDS: Morphine 2 MG/ML VIAL SLOW IVP PRN ×4 (04:04→16:47)
[2021-11-14 04:44] LABS: Anion Gap 10 mmol/L (10-20); BUN (Urea Nitrogen) 15 mg/dL (8.9-20.6); Calc. Creatinine Clearance 226 mL/min (70-130); Carbon Dioxide 29 mmol/L (22-29); Chloride 103 mmol/L (98-107); Glucose 105 mg/dL (70-105); Potassium 3.6 mmol/L (3.5-5.1); Sodium 138 mmol/L (136-145)
[2021-11-14 04:45] LABS: #Lymphocytes 1.1 thou/uL (1.20-3.40); #Monocytes 0.4 thou/uL (0.11-0.59); #Neutrophils 2.7 thou/uL (1.40-6.50); %Basophils 0.3 % (0.0-1.0); %Eosinophils 1.2 % (0.0-10.0); %Monocytes 9.9 % (0.0-10.0); %Neutrophils 63.6 % (42.0-75.0); Hemoglobin 11.4 g/dL (14.0-18.0); Mean Corpuscular Hemoglobin 33.5 pg (27.0-31.0); Mean Corpuscular Volume 93.1 fL (78.0-98.0); Mean Platelet Volume 6.5 fL (7.4-10.4); Platelet Count 131 thou/uL (130-400); RBC Distribution Width 12.4 % (11.5-14.5); Red Blood Cell (RBC) Count 3.41 mill/uL (4.70-6.10); White Blood Cell (WBC) Count 4.2 thou/uL (4.8-10.8)
[2021-11-14] MEDS: Gabapentin 300 MG CAP PO SCH ×3 (08:36→20:12)
[2021-11-14] MEDS: Cholecalciferol 1,000 UNITS (25 MCG) TAB PO SCH (08:37)
[2021-11-14] MEDS: Losartan 25 MG TAB PO SCH (08:37)
[2021-11-14] MEDS: Folic Acid 1 MG TAB PO SCH (08:38)
[2021-11-14] MEDS: Pantoprazole 40 MG VIAL IVP SCH (08:38)
[2021-11-14] MEDS ORDERED: Gabapentin 300 MG CAP PO SCH (09:00)
[2021-11-14] MEDS ORDERED: Non-Formulary Item 1 EACH (Esomeprazole Magnesium [Nexium 24hr] 20 MG Tablet.Dr) PO SCH (09:00)
[2021-11-14] MEDS: Artificial Tear Sol 15 ML BOT L EYE SCH ×4 (12:42→20:15)
[2021-11-14] MEDS ORDERED: Diltiazem HCl 125 MG in Premix Bag 1 BAG IVPB SCH (17:00)
[2021-11-14] MEDS: HYDROcodone/Acetaminophen 10/325 mg Tablet PO PRN (19:11)
[2021-11-14] MEDS: Montelukast Sodium 10 mg Tablet PO SCH (20:13)
[2021-11-14] MEDS: Rivaroxaban 10 MG TAB PO SCH (20:13)
[2021-11-15] MEDS: HYDROcodone/Acetaminophen 10/325 mg Tablet PO PRN ×6 (00:35→22:35)
[2021-11-15 04:21] LABS: #Eosinphils 0.1 thou/uL (0.0-0.7); #Lymphocytes 1.5 thou/uL (1.20-3.40); #Monocytes 0.5 thou/uL (0.11-0.59); #Neutrophils 2.2 thou/uL (1.40-6.50); %Basophils 0.6 % (0.0-1.0); %Eosinophils 2.2 % (0.0-10.0); %Lymphocytes 34.2 % (21.0-51.0); %Monocytes 10.9 % (0.0-10.0); %Neutrophils 52.1 % (42.0-75.0); Mean Corpuscular HGB CONC 35.7 g/dL (32.0-36.0); Mean Corpuscular Hemoglobin 33.8 pg (27.0-31.0); Mean Corpuscular Volume 94.8 fL (78.0-98.0); Mean Platelet Volume 6.8 fL (7.4-10.4); Platelet Count 121 thou/uL (130-400); RBC Distribution Width 12.2 % (11.5-14.5); Red Blood Cell (RBC) Count 3.25 mill/uL (4.70-6.10); White Blood Cell (WBC) Count 4.3 thou/uL (4.8-10.8)
[2021-11-15 04:44] LABS: Anion Gap 11 mmol/L (10-20); BUN (Urea Nitrogen) 12 mg/dL (8.9-20.6); Calc. Creatinine Clearance 264 mL/min (70-130); Calcium 8.1 mg/dL (7.8-10.44); Carbon Dioxide 27 mmol/L (22-29); Chloride 104 mmol/L (98-107); Glucose 95 mg/dL (70-105); Potassium 3.6 mmol/L (3.5-5.1); Sodium 138 mmol/L (136-145)
[2021-11-15] MEDS: Morphine 2 MG/ML VIAL SLOW IVP PRN (07:56)
[2021-11-15] MEDS: Losartan 25 MG TAB PO SCH (08:00)
[2021-11-15] MEDS: Gabapentin 300 MG CAP PO SCH ×2 (08:01→14:34)
[2021-11-15] MEDS: Folic Acid 1 MG TAB PO SCH (08:01)
[2021-11-15] MEDS: Cholecalciferol 1,000 UNITS (25 MCG) TAB PO SCH (08:01)
[2021-11-15] MEDS: Pantoprazole 40 MG VIAL IVP SCH (08:02)
[2021-11-15] MEDS: Artificial Tear Sol 15 ML BOT L EYE SCH ×4 (08:02→21:10)
[2021-11-15] MEDS: Gabapentin 400 MG CAP PO SCH (21:10)
[2021-11-15] MEDS: Rivaroxaban 10 MG TAB PO SCH (21:11)
[2021-11-15] MEDS: Montelukast Sodium 10 mg Tablet PO SCH (21:11)
[2021-11-16] MEDS: HYDROcodone/Acetaminophen 10/325 mg Tablet PO PRN ×4 (02:38→16:01)
[2021-11-16 04:37] LABS: #Eosinphils 0.1 thou/uL (0.0-0.7); #Lymphocytes 1.5 thou/uL (1.20-3.40); #Monocytes 0.4 thou/uL (0.11-0.59); #Neutrophils 2.7 thou/uL (1.40-6.50); %Basophils 0.4 % (0.0-1.0); %Eosinophils 2.6 % (0.0-10.0); %Lymphocytes 31.6 % (21.0-51.0); %Monocytes 8.2 % (0.0-10.0); %Neutrophils 57.2 % (42.0-75.0); Hemoglobin 11.4 g/dL (14.0-18.0); Mean Corpuscular HGB CONC 35.6 g/dL (32.0-36.0); Mean Corpuscular Hemoglobin 33.4 pg (27.0-31.0); Mean Corpuscular Volume 93.9 fL (78.0-98.0); Mean Platelet Volume 6.9 fL (7.4-10.4); Platelet Count 125 thou/uL (130-400); RBC Distribution Width 12.2 % (11.5-14.5); Red Blood Cell (RBC) Count 3.41 mill/uL (4.70-6.10); White Blood Cell (WBC) Count 4.7 thou/uL (4.8-10.8)
[2021-11-16 04:59] LABS: Anion Gap 11 mmol/L (10-20); BUN (Urea Nitrogen) 10 mg/dL (8.9-20.6); Calc. Creatinine Clearance 250 mL/min (70-130); Calcium 8.5 mg/dL (7.8-10.44); Carbon Dioxide 29 mmol/L (22-29); Chloride 104 mmol/L (98-107); Glucose 96 mg/dL (70-105); Potassium 3.6 mmol/L (3.5-5.1); Sodium 140 mmol/L (136-145)
[2021-11-16] MEDS: Gabapentin 400 MG CAP PO SCH ×2 (08:45→16:01)
[2021-11-16] MEDS: Cholecalciferol 1,000 UNITS (25 MCG) TAB PO SCH (08:46)
[2021-11-16] MEDS: Folic Acid 1 MG TAB PO SCH (08:46)
[2021-11-16] MEDS: Losartan 25 MG TAB PO SCH (08:46)
[2021-11-16] MEDS: Pantoprazole 40 MG VIAL IVP SCH (08:47)
[2021-11-16] MEDS: Artificial Tear Sol 15 ML BOT L EYE SCH ×3 (08:47→16:01)
[2021-11-16 17:40] VITALS: BP 103/72; TEMP 97.5
[2021-11-16] MEDS ORDERED: Prevnar 13-Val Conj/PF 0.5 ML SYRINGE IM ONE (19:30)
== END 2021-11-16 18:00 | disposition home or self-care (01) | DRG 74 ==
LOC: ERS 12:53 → 2NO 16:12
PROVIDERS: ADMIT Internal Medicine; ATTEND Internal Medicine
DX: B02.29 Other postherpetic nervous system involvement (principal); Z68.42 Body mass index [BMI] 45.0-49.9, adult; I48.20 Chronic atrial fibrillation, unspecified; Z20.822 Contact with and (suspected) exposure to COVID-19; I10 Essential (primary) hypertension; K21.9 Gastro-esophageal reflux disease without esophagitis; E55.9 Vitamin D deficiency, unspecified; G47.33 Obstructive sleep apnea (adult) (pediatric); J45.909 Unspecified asthma, uncomplicated; E66.01 Morbid (severe) obesity due to excess calories; F17.210 Nicotine dependence, cigarettes, uncomplicated; E86.0 Dehydration; R73.9 Hyperglycemia, unspecified; D64.9 Anemia, unspecified; B02.9 Zoster without complications; Z88.0 Allergy status to penicillin; Z88.2 Allergy status to sulfonamides; Z91.040 Latex allergy status; Z79.899 Other long term (current) drug therapy; Z79.01 Long term (current) use of anticoagulants; Z90.89 Acquired absence of other organs; Z98.890 Other specified postprocedural states; Z82.49 Family history of ischemic heart disease and other diseases of the circulatory system; Z84.1 Family history of disorders of kidney and ureter; Z82.3 Family history of stroke
CPT/HCPCS: 36415; 36416; 80048; 80053; 81001; 82550; 83735; 84443; 84484; 85025; 93005; C9113; J0133; J2270; J2405; J3490; J7050; Q0162; U0002

== ENCOUNTER 2022-06-23 16:00 | Observation (INO) | payer BC ==
[2022-06-23 16:33] LABS: #Basophils 0.1 thou/uL (0.0-0.2); #Eosinphils 0.1 thou/uL (0.0-0.7); #Lymphocytes 2.4 thou/uL (1.20-3.40); #Monocytes 0.5 thou/uL (0.11-0.59); #Neutrophils 4.1 thou/uL (1.40-6.50); %Eosinophils 1.3 % (0.0-10.0); %Lymphocytes 33.1 % (21.0-51.0); %Monocytes 7.3 % (0.0-10.0); %Neutrophils 57.3 % (42.0-75.0); Hemoglobin 13.1 g/dL (14.0-18.0); Mean Corpuscular HGB CONC 35.8 g/dL (32.0-36.0); Mean Corpuscular Hemoglobin 32.4 pg (27.0-31.0); Mean Corpuscular Volume 90.4 fl (78.0-98.0); Mean Platelet Volume 7.5 fL (7.4-10.4); Platelet Count 183 10x3/uL (130-400); RBC Distribution Width 13.4 % (11.5-14.5); Red Blood Cell (RBC) Count 4.06 mill/uL (4.70-6.10); White Blood Cell (WBC) Count 7.2 10x3/uL (4.8-10.8)
[2022-06-23 16:58] LABS: ALT (SGPT) 39 U/L (8-55); AST (SGOT) 25 U/L (5-34); Albumin 4.7 g/dL (3.5-5.0); Alkaline Phosphatase 79 U/L (40-110); Anion Gap 13 mmol/L (10-20); BUN (Urea Nitrogen) 17 mg/dL (8.9-20.6); Bilirubin, Total 0.8 mg/dL (0.2-1.2); Calc. Creatinine Clearance 0 mL/min (70-130); Calcium 9.2 mg/dL (7.8-10.44); Carbon Dioxide 24 mmol/L (22-29); Chloride 108 mmol/L (98-107); Estimated GFR 83; Globulin 2.4 g/dL (2.4-3.5); Glucose 80 mg/dL (70-105); Potassium 4.3 mmol/L (3.5-5.1); Protein, Total 7.1 g/dL (6.0-8.3); Sodium 141 mmol/L (136-145)
[2022-06-23 20:03] LABS: Troponin I Less than 0.010 ng/mL (< 0.028)
[2022-06-23] MEDS ORDERED: Albuterol 200 PUFF (6.7GM INHALER) INH PRN (20:59)
[2022-06-23 21:56] VITALS: BMI 50.8
[2022-06-23] MEDS: Gabapentin 300 MG CAP PO SCH (22:22)
[2022-06-23] MEDS: Montelukast Sodium 10 mg Tablet PO SCH (22:22)
[2022-06-23] MEDS: Rivaroxaban 10 MG TAB PO SCH (22:22)
[2022-06-23 23:10] LABS: Troponin I Less than 0.010 ng/mL (< 0.028)
[2022-06-24 05:12] LABS: #Basophils 0.1 thou/uL (0.0-0.2); #Eosinphils 0.1 thou/uL (0.0-0.7); #Lymphocytes 1.6 thou/uL (1.20-3.40); #Monocytes 0.4 thou/uL (0.11-0.59); #Neutrophils 3.5 thou/uL (1.40-6.50); %Basophils 0.9 % (0.0-1.0); %Lymphocytes 27.7 % (21.0-51.0); %Monocytes 6.9 % (0.0-10.0); %Neutrophils 62.5 % (42.0-75.0); Hemoglobin 12.1 g/dL (14.0-18.0); Mean Corpuscular HGB CONC 36.5 g/dL (32.0-36.0); Mean Corpuscular Volume 90.4 fl (78.0-98.0); Mean Platelet Volume 7.5 fL (7.4-10.4); Platelet Count 156 10x3/uL (130-400); RBC Distribution Width 13.2 % (11.5-14.5); Red Blood Cell (RBC) Count 3.66 mill/uL (4.70-6.10); White Blood Cell (WBC) Count 5.7 10x3/uL (4.8-10.8)
[2022-06-24 05:23] LABS: Anion Gap 10 mmol/L (10-20); BUN (Urea Nitrogen) 14 mg/dL (8.9-20.6); Calc. Creatinine Clearance 258 mL/min (70-130); Calcium 8.9 mg/dL (7.8-10.44); Carbon Dioxide 25 mmol/L (22-29); Chloride 107 mmol/L (98-107); Estimated GFR 105; Glucose 114 mg/dL (70-105); Potassium 3.4 mmol/L (3.5-5.1); Sodium 139 mmol/L (136-145)
[2022-06-24 05:25] LABS: Magnesium 1.9 mg/dL (1.6-2.6); Phosphorus 4.3 mg/dL (2.3-4.7)
[2022-06-24] MEDS: Gabapentin 300 MG CAP PO SCH ×3 (08:16→20:58)
[2022-06-24] MEDS ORDERED: Gabapentin 300 MG CAP PO SCH (09:00)
[2022-06-24] MEDS ORDERED: FLU VACC QS2022-23(6MOS UP)/PF 60 MCG/0.5 ML SYRINGE IM ONE (09:00)
[2022-06-24] MEDS: Folic Acid 1 MG TAB PO SCH (09:37)
[2022-06-24] MEDS ORDERED: Potassium Chloride 20 MEQ TAB PO SCH (11:00)
[2022-06-24 18:03] LABS: Potassium 3.9 mmol/L (3.5-5.1)
[2022-06-24] MEDS: Montelukast Sodium 10 mg Tablet PO SCH (20:59)
[2022-06-24] MEDS: Rivaroxaban 10 MG TAB PO SCH (20:59)
[2022-06-25 05:36] LABS: Anion Gap 12 mmol/L (10-20); BUN (Urea Nitrogen) 13 mg/dL (8.9-20.6); Calc. Creatinine Clearance 255 mL/min (70-130); Calcium 8.8 mg/dL (7.8-10.44); Carbon Dioxide 25 mmol/L (22-29); Chloride 106 mmol/L (98-107); Estimated GFR 105; Glucose 95 mg/dL (70-105); Magnesium 1.8 mg/dL (1.6-2.6); Potassium 3.5 mmol/L (3.5-5.1); Sodium 139 mmol/L (136-145)
[2022-06-25] MEDS ORDERED: Potassium Chloride 20 MEQ TAB PO SCH (08:00)
[2022-06-25] MEDS: Folic Acid 1 MG TAB PO SCH (08:52)
[2022-06-25] MEDS: Gabapentin 300 MG CAP PO SCH ×2 (08:52→15:03)
[2022-06-25 12:41] VITALS: BP 137/71; TEMP 97.3
== END 2022-06-25 15:31 | disposition home or self-care (01) ==
LOC: ERS 16:00 → ERHOLD 18:20 → 2SW 21:32
PROVIDERS: ADMIT Hospitalist; ATTEND Hospitalist
DX: I49.5 Sick sinus syndrome (principal); I48.0 Paroxysmal atrial fibrillation; I11.9 Hypertensive heart disease without heart failure; G47.33 Obstructive sleep apnea (adult) (pediatric); J45.909 Unspecified asthma, uncomplicated; E87.6 Hypokalemia; R55 Syncope and collapse; I87.2 Venous insufficiency (chronic) (peripheral); E66.01 Morbid (severe) obesity due to excess calories; Z68.43 Body mass index [BMI] 50.0-59.9, adult; Z79.01 Long term (current) use of anticoagulants; Z79.899 Other long term (current) drug therapy; Z88.0 Allergy status to penicillin; Z88.2 Allergy status to sulfonamides; Z91.040 Latex allergy status; Z20.822 Contact with and (suspected) exposure to COVID-19
CPT/HCPCS: 36415; 71045; 80048; 80053; 83735; 83880; 84100; 84484; 85025; 93005; 93306; G0378; U0003; U0005

== ENCOUNTER 2024-07-04 13:10 | Emergency (ER) | payer BC ==
[2024-07-04] MEDS ORDERED: Iopamidol-370 76% 500 ML MDV (1 ML CHARGE) ONE (13:30)
[2024-07-04] MEDS ORDERED: Acetaminophen 500 MG TAB ONE (15:33)
[2024-07-04] MEDS ORDERED: HYDROcodone/Acetaminophen 5/325 mg Tablet ONE (16:30)
[2024-07-04 17:33] LABS: #Basophils 0.06 10x3/uL (0.0-0.2); %Basophils 0.5 % (0.0-1.0); %Eosinophils 0.4 % (0.0-10.0); %Lymphocytes 10.7 % (21.0-51.0); %Monocytes 4.6 % (0.0-10.0); %Neutrophils 83.3 % (42.0-75.0); Mean Corpuscular HGB CONC 36.8 g/dL (32.0-36.0); Mean Corpuscular Volume 86.8 fL (78.0-98.0); Mean Platelet Volume 9.7 fL (7.4-10.4); Platelet Count 178 10x3/uL (130-400); RBC Distribution Width 12.9 % (11.5-14.5); Red Blood Cell (RBC) Count 4.38 mill/uL (4.70-6.10)
[2024-07-04 17:48] LABS: INR-International Normal Ratio 1.3; Prothrombin Time 16.5 sec (12.0-14.7)
[2024-07-04 17:49] LABS: PTT 29.4 sec (22.9-36.1)
[2024-07-04 18:05] LABS: ALT (SGPT) 33 U/L (Less than 45); AST (SGOT) 36 U/L (11-34); Albumin 4.3 g/dL (3.1-4.5); Alkaline Phosphatase 79 U/L (40-110); Anion Gap 15 mmol/L (10-20); BUN (Urea Nitrogen) 13 mg/dL (8.4-25.7); Bilirubin, Total 1.3 mg/dL (0.3-1.2); Calc. Creatinine Clearance 0 mL/min (70-130); Calcium 9.2 mg/dL (7.8-10.44); Carbon Dioxide 28 mmol/L (22-29); Chloride 102 mmol/L (98-107); Estimated GFR 95; Glucose 110 mg/dL (70-105); Potassium 3.9 mmol/L (3.5-5.1); Protein, Total 7.3 g/dL (6.0-8.3); Sodium 141 mmol/L (136-145)
== END 2024-07-04 20:45 | disposition home or self-care (01) ==
LOC: ERS 13:10
DX: S42.032A Displaced fracture of lateral end of left clavicle, initial encounter for closed fracture (principal); S22.42XA Multiple fractures of ribs, left side, initial encounter for closed fracture; S80.12XA Contusion of left lower leg, initial encounter; E04.1 Nontoxic single thyroid nodule; I48.91 Unspecified atrial fibrillation; I10 Essential (primary) hypertension; J45.909 Unspecified asthma, uncomplicated; W01.198A Fall on same level from slipping, tripping and stumbling with subsequent striking against other object, initial encounter; Z79.899 Other long term (current) drug therapy
CPT/HCPCS: 70450; 71045; 71260; 72125; 74177; 80053; 85025; 85610; 85730; 94799; Q9967

== ENCOUNTER 2024-08-01 05:58 | Day surgery (SDC) | payer BC ==
[2024-07-31 14:09] VITALS: BMI 50.1
[2024-08-01] MEDS ORDERED: PROPOFOL 20 ML ONE (07:02)
[2024-08-01] MEDS ORDERED: fentaNYL PF 100 MCG/2 ML SYRINGE ONE (07:02)
[2024-08-01] MEDS ORDERED: Rocuronium Bromide 10 MG/ML (10ML VIAL) ONE (07:03)
[2024-08-01] MEDS ORDERED: Lidocaine 1% PF 5 ML VIAL ONE (07:03)
[2024-08-01] MEDS ORDERED: Clindamycin/D5W 900 mg/50 ml Premix Bag ONE (07:26)
[2024-08-01] MEDS ORDERED: PHENYLEPHRINE-NS 100 MCG/ML 10 ML SYRINGE ONE (08:01)
[2024-08-01] MEDS ORDERED: Bupivacaine PF 0.5% 30 ML VIAL ONE (08:44)
[2024-08-01] MEDS ORDERED: EPINEPHrine 1 MG/ML VIAL ONE (08:44)
[2024-08-01] MEDS ORDERED: Ondansetron PF 4 MG/2 ML Vial ONE (08:45)
[2024-08-01] MEDS ORDERED: Dexamethasone 4 mg/ml Vial ONE (08:47)
[2024-08-01] MEDS ORDERED: SUGAMMADEX SODIUM 200 MG/2 ML VIAL ONE (08:47)
[2024-08-01] MEDS ORDERED: fentaNYL 50 mcg/mL 1 mL Vial ONE (09:17)
[2024-08-01] MEDS ORDERED: HYDROmorphone 0.5 MG/0.5 ML SYRINGE ONE ×2 (09:17→10:01)
[2024-08-01] MEDS ORDERED: HYDROcodone/Acetaminophen 5/325 mg Tablet ONE (11:43)
== END 2024-08-01 12:52 | disposition home or self-care (01) ==
LOC: SDC 05:58
PROVIDERS: ATTEND Orthopaedic Surgery
PROC: 0PSB04Z Reposition Left Clavicle with Internal Fixation Device, Open Approach (ICD-10-PCS; principal; 2024-08-01)
DX: S42.022A Displaced fracture of shaft of left clavicle, initial encounter for closed fracture (principal); J45.909 Unspecified asthma, uncomplicated; K21.9 Gastro-esophageal reflux disease without esophagitis; I10 Essential (primary) hypertension; I48.91 Unspecified atrial fibrillation; D64.9 Anemia, unspecified; Z79.899 Other long term (current) drug therapy; W10.9XXA Fall (on) (from) unspecified stairs and steps, initial encounter
CPT/HCPCS: C1713; J0171; J0665; J1100; J1171; J2405; J2704; J3010; J3490